=== PATIENT | female | born 1935 | race Caucasian/White ===

== ENCOUNTER 2016-10-17 11:07 | Outpatient (RCR) | payer MEDICARE, MEDICAID ==
[~2016-10-17] VITALS: Ht 162.6 cm; Wt 78.0 kg
[2016-10-17] MEDS ORDERED: NS 550ML IV ONE (11:08)
[2016-10-17] MEDS ORDERED: Succinylcholine 20mg/ml 10ml vial ONE (11:08)
[2016-10-17] MEDS ORDERED: Methohexital Sodium Syr 100mg/10ml IVP ONE (11:08)
[2016-11-05] MEDS ORDERED: NS 550ML IV ONE (11:00)
[2016-11-05] MEDS ORDERED: Methohexital Sodium Syr 100mg/10ml IVP ONE (11:00)
[2016-11-05] MEDS ORDERED: Succinylcholine 20mg/ml 10ml vial ONE (11:00)
== END 2016-11-13 | disposition home or self-care (01) ==
LOC: ECT 11:07
DX: F25.9 Schizoaffective disorder, unspecified (principal); I10 Essential (primary) hypertension; E11.9 Type 2 diabetes mellitus without complications; Z90.49 Acquired absence of other specified parts of digestive tract
CPT/HCPCS: 90870; J0330; J7040

== ENCOUNTER 2016-11-26 06:14 | Outpatient (RCR) | payer MEDICARE, MEDICAID ==
[~2016-11-26] VITALS: Ht 162.6 cm; Wt 78.0 kg
[2016-11-26] MEDS ORDERED: NS 550ML IV ONE (06:15)
[2016-11-26] MEDS ORDERED: Methohexital Sodium Syr 100mg/10ml IVP ONE (06:15)
[2016-11-26] MEDS ORDERED: Succinylcholine 20mg/ml 10ml vial ONE (06:15)
[2016-11-26] MEDS ORDERED: Atropine Sulfate 0.4mg/ml inj IVP PRN (12:30)
== END 2016-12-11 | disposition home or self-care (01) ==
LOC: ECT 06:14
DX: F25.9 Schizoaffective disorder, unspecified (principal); Z90.49 Acquired absence of other specified parts of digestive tract
CPT/HCPCS: 90870; J0330; J7040

== ENCOUNTER 2016-12-17 08:29 | Outpatient (RCR) | payer MEDICARE, MEDICAID ==
[~2016-12-17] VITALS: Ht 162.6 cm; Wt 78.0 kg
[2016-12-17] MEDS ORDERED: NS 550ML IV ONE (08:30)
[2016-12-17] MEDS ORDERED: Succinylcholine 20mg/ml 10ml vial ONE (08:30)
[2016-12-17] MEDS ORDERED: Methohexital Sodium Syr 100mg/10ml IVP ONE (08:30)
[2016-12-17] MEDS ORDERED: Atropine Sulfate 0.4mg/ml inj IVP PRN (09:50)
[2017-01-07] MEDS ORDERED: Methohexital Sodium Syr 100mg/10ml IVP ONE (08:30)
[2017-01-07] MEDS ORDERED: NS 550ML IV ONE (08:30)
[2017-01-07] MEDS ORDERED: Succinylcholine 20mg/ml 10ml vial ONE (08:30)
== END 2017-01-11 | disposition home or self-care (01) ==
LOC: ECT 08:29
DX: F25.9 Schizoaffective disorder, unspecified (principal); Z90.49 Acquired absence of other specified parts of digestive tract
CPT/HCPCS: 90870; J0330; J7040

== ENCOUNTER 2017-01-28 05:59 | Outpatient (RCR) | payer MEDICARE, MEDICAID ==
[~2017-01-28] VITALS: Ht 162.6 cm; Wt 78.0 kg
[2017-01-28] MEDS ORDERED: Methohexital Sodium Syr 100mg/10ml IVP ONE (06:00)
[2017-01-28] MEDS ORDERED: NS 550ML IV ONE (06:00)
[2017-01-28] MEDS ORDERED: Succinylcholine 20mg/ml 10ml vial ONE (06:00)
== END 2017-02-10 | disposition home or self-care (01) ==
LOC: ECT 05:59
DX: F25.9 Schizoaffective disorder, unspecified (principal)
CPT/HCPCS: 90870; J0330; J7040

== ENCOUNTER 2017-02-18 08:58 | Outpatient (RCR) | payer MEDICARE, MEDICAID ==
[~2017-02-18] VITALS: Ht 162.6 cm; Wt 78.0 kg
[2017-02-18] MEDS ORDERED: Methohexital Sodium Syr 100mg/10ml IVP ONE (08:59)
[2017-02-18] MEDS ORDERED: NS 550ML IV ONE (08:59)
[2017-02-18] MEDS ORDERED: Succinylcholine 20mg/ml 10ml vial ONE (08:59)
[2017-03-13] MEDS ORDERED: NS 550ML IV ONE (07:00)
[2017-03-13] MEDS ORDERED: Methohexital Sodium Syr 100mg/10ml IVP ONE (07:00)
[2017-03-13] MEDS ORDERED: Succinylcholine 20mg/ml 10ml vial ONE (07:00)
== END 2017-03-13 | disposition home or self-care (01) ==
LOC: ECT 08:58
DX: F25.9 Schizoaffective disorder, unspecified (principal)
CPT/HCPCS: 90870; J0330; J7040

== ENCOUNTER 2017-04-01 05:38 | Outpatient (RCR) | payer MEDICARE, MEDICAID ==
[~2017-04-01] VITALS: Ht 162.6 cm; Wt 78.0 kg
[2017-04-03] MEDS ORDERED: Methohexital Sodium Syr 100mg/10ml IVP ONE (08:00)
[2017-04-03] MEDS ORDERED: Succinylcholine 20mg/ml 10ml vial ONE (08:00)
[2017-04-03] MEDS ORDERED: NS 550ML IV ONE (08:00)
== END 2017-04-12 | disposition home or self-care (01) ==
LOC: ECT 05:38
DX: F25.9 Schizoaffective disorder, unspecified (principal)
CPT/HCPCS: 90870; J0330; J7040

== ENCOUNTER 2017-04-22 05:13 | Outpatient (RCR) | payer MEDICARE, MEDICAID ==
[~2017-04-22] VITALS: Ht 162.6 cm; Wt 78.0 kg
[2017-04-22] MEDS ORDERED: NS 500ML IV ONE (05:14)
[2017-04-22] MEDS ORDERED: Methohexital Sodium Syr 100mg/10ml IVP ONE (05:14)
[2017-04-22] MEDS ORDERED: Succinylcholine 20mg/ml 10ml vial ONE (05:14)
[2017-04-24] MEDS ORDERED: Methohexital Sodium Syr 100mg/10ml IVP ONE (07:00)
[2017-04-24] MEDS ORDERED: NS 500ML IV ONE (07:00)
[2017-04-24] MEDS ORDERED: Succinylcholine 20mg/ml 10ml vial ONE (07:00)
[2017-04-24] MEDS ORDERED: Sodium Chloride 500ML 500 ML IV ONE (10:15)
[2017-05-13] MEDS ORDERED: Sodium Chloride 500ML 500 ML IV ONE (08:26)
[2017-05-13] MEDS ORDERED: Methohexital Sodium Syr 100mg/10ml IVP ONE (10:18)
[2017-05-13] MEDS ORDERED: NS 500ML IV ONE (10:18)
[2017-05-13] MEDS ORDERED: Succinylcholine 20mg/ml 10ml vial ONE (10:18)
== END 2017-05-13 | disposition home or self-care (01) ==
LOC: ECT 05:13
DX: F25.9 Schizoaffective disorder, unspecified (principal)
CPT/HCPCS: 90870; J0330; J7040

== ENCOUNTER 2017-06-03 08:11 | Outpatient (RCR) | payer MEDICARE, MEDICAID ==
[~2017-06-03] VITALS: Ht 162.6 cm; Wt 78.0 kg
[2017-06-03] MEDS ORDERED: Succinylcholine 20mg/ml 10ml vial ONE (08:12)
[2017-06-03] MEDS ORDERED: Methohexital Sodium Syr 100mg/10ml IVP ONE (08:12)
[2017-06-03] MEDS ORDERED: NS 550ML IV ONE (08:12)
== END 2017-06-13 | disposition home or self-care (01) ==
LOC: ECT 08:11
DX: F25.9 Schizoaffective disorder, unspecified (principal)
CPT/HCPCS: 90870; J0330; J7040

== ENCOUNTER 2017-07-01 07:44 | Outpatient (RCR) | payer MEDICARE, MEDICAID ==
[~2017-07-01] VITALS: Ht 162.6 cm; Wt 78.0 kg
[2017-07-01] MEDS ORDERED: Methohexital Sodium Syr 100mg/10ml IVP ONE (07:45)
[2017-07-01] MEDS ORDERED: NS 500ML IV ONE (07:45)
[2017-07-01] MEDS ORDERED: Succinylcholine 20mg/ml 10ml vial ONE (07:45)
[2017-07-01] MEDS ORDERED: Sodium Chloride 500ML 500 ML IV ONE (09:41)
== END 2017-07-13 | disposition home or self-care (01) ==
LOC: ECT 07:44
DX: F25.9 Schizoaffective disorder, unspecified (principal)
CPT/HCPCS: 90870; J0330; J7040

== ENCOUNTER 2017-07-22 06:36 | Outpatient (RCR) | payer MEDICARE, MEDICAID ==
[~2017-07-22] VITALS: Ht 162.6 cm; Wt 78.0 kg
[2017-07-29] MEDS ORDERED: Sodium Chloride 500ML 500 ML IV ONE (08:43)
[2017-07-29] MEDS ORDERED: Methohexital Sodium Syr 100mg/10ml IVP ONE (09:00)
[2017-07-29] MEDS ORDERED: Succinylcholine 20mg/ml 10ml vial ONE (09:00)
[2017-07-29] MEDS ORDERED: NS 500ML IV ONE (09:00)
== END 2017-08-13 | disposition home or self-care (01) ==
LOC: ECT 06:36
DX: F25.9 Schizoaffective disorder, unspecified (principal)
CPT/HCPCS: 90870; J0330; J7040

== ENCOUNTER 2017-08-19 06:18 | Outpatient (RCR) | payer MEDICARE, MEDICAID ==
[~2017-08-19] VITALS: Ht 162.6 cm; Wt 78.0 kg
[2017-08-19] MEDS ORDERED: Succinylcholine 20mg/ml 10ml vial ONE (06:19)
[2017-08-19] MEDS ORDERED: Methohexital Sodium Syr 100mg/10ml IVP ONE (06:19)
[2017-08-19] MEDS ORDERED: NS 500ML IV ONE (06:19)
[2017-08-19 08:29] VITALS: BP 155/75
[2017-08-19] MEDS ORDERED: Sodium Chloride 500ML 500 ML IV ONE (08:42)
[2017-08-19 08:45] VITALS: BP 130/47
[2017-08-19 08:50] VITALS: BP 146/63
[2017-08-19 08:55] VITALS: BP 153/59
[2017-08-19 09:00] VITALS: BP 144/56
[2017-09-09] MEDS ORDERED: Succinylcholine 20mg/ml 10ml vial ONE (08:00)
[2017-09-09] MEDS ORDERED: Methohexital Sodium Syr 100mg/10ml IVP ONE (08:00)
[2017-09-09] MEDS ORDERED: NS 500ML ONE (08:00)
[2017-09-09 08:57] VITALS: BP 183/73
[2017-09-09 09:18] VITALS: BP 125/51
[2017-09-09] MEDS ORDERED: Sodium Chloride 500ML 500 ML IV ONE (09:18)
[2017-09-09] MEDS ORDERED: Atropine Sulfate 0.4mg/ml inj IVP PRN (09:18)
[2017-09-09 09:23] VITALS: BP 133/61
[2017-09-09 09:28] VITALS: BP 154/74
[2017-09-09 09:33] VITALS: BP 134/71
== END 2017-09-12 | disposition home or self-care (01) ==
LOC: ECT 06:18
DX: F25.9 Schizoaffective disorder, unspecified (principal)
CPT/HCPCS: 90870; J0330; J7040

== ENCOUNTER 2017-09-30 05:38 | Outpatient (RCR) | payer MEDICARE, MEDICAID ==
[~2017-09-30] VITALS: Ht 30.5 cm; Wt 0.5 kg
[2017-09-30] MEDS ORDERED: NS 500ML ONE (05:39)
[2017-09-30] MEDS ORDERED: Methohexital Sodium Syr 100mg/10ml IVP ONE (05:39)
[2017-09-30] MEDS ORDERED: Succinylcholine 20mg/ml 10ml vial ONE (05:39)
[2017-09-30 08:30] VITALS: BP 159/76
[2017-09-30] MEDS ORDERED: Sodium Chloride 500ML 500 ML IV ONE (08:40)
[2017-09-30 08:45] VITALS: BP 131/45
[2017-09-30 08:50] VITALS: BP 130/45
[2017-09-30 08:55] VITALS: BP 136/63
[2017-09-30 09:00] VITALS: BP 136/68
== END 2017-10-13 | disposition home or self-care (01) ==
LOC: ECT 05:38
DX: F25.9 Schizoaffective disorder, unspecified (principal)
CPT/HCPCS: 90870; J0330; J7040

== ENCOUNTER 2017-10-21 05:41 | Outpatient (RCR) | payer MEDICARE, MEDICAID ==
[~2017-10-21] VITALS: Ht 162.6 cm; Wt 78.0 kg
[2017-10-21] MEDS ORDERED: Succinylcholine 20mg/ml 10ml vial ONE (05:42)
[2017-10-21] MEDS ORDERED: NS 500ML ONE (05:42)
[2017-10-21] MEDS ORDERED: Methohexital Sodium Syr 100mg/10ml IVP ONE (05:42)
[2017-10-21 09:08] VITALS: BP 143/73
[2017-10-21 09:28] VITALS: BP 125/45
[2017-10-21] MEDS ORDERED: Sodium Chloride 500ML 500 ML IV ONE (09:28)
[2017-10-21] MEDS ORDERED: Atropine Sulfate 0.4mg/ml inj IVP PRN (09:28)
[2017-10-21 09:33] VITALS: BP 112/40
[2017-10-21 09:38] VITALS: BP 115/40
[2017-10-21 09:43] VITALS: BP 131/53
[2017-11-11] MEDS ORDERED: Methohexital Sodium Syr 100mg/10ml IVP ONE (06:00)
[2017-11-11] MEDS ORDERED: NS 500ML ONE (06:00)
[2017-11-11] MEDS ORDERED: Succinylcholine 20mg/ml 10ml vial ONE (06:00)
== END 2017-11-13 | disposition home or self-care (01) ==
LOC: ECT 05:41
DX: F25.9 Schizoaffective disorder, unspecified (principal); I10 Essential (primary) hypertension; E11.9 Type 2 diabetes mellitus without complications; Z90.49 Acquired absence of other specified parts of digestive tract
CPT/HCPCS: 90870; J0330; J7040

== ENCOUNTER 2017-12-02 06:26 | Outpatient (RCR) | payer MEDICARE, MEDICAID ==
[~2017-12-02] VITALS: Ht 30.5 cm; Wt 0.5 kg
[2017-12-02] MEDS ORDERED: NS 500ML ONE (06:27)
[2017-12-02] MEDS ORDERED: Succinylcholine 20mg/ml 10ml vial ONE (06:27)
[2017-12-02] MEDS ORDERED: Methohexital Sodium Syr 100mg/10ml IVP ONE (06:27)
[2017-12-02 08:17] VITALS: BP 148/71
[2017-12-02 08:34] VITALS: BP 136/44
[2017-12-02] MEDS ORDERED: Sodium Chloride 500ML 500 ML IV ONE (08:34)
[2017-12-02 08:39] VITALS: BP 126/40
[2017-12-02 08:44] VITALS: BP 137/53
[2017-12-02 08:49] VITALS: BP 141/45
== END 2017-12-11 | disposition home or self-care (01) ==
LOC: ECT 06:26
DX: F25.9 Schizoaffective disorder, unspecified (principal)
CPT/HCPCS: 90870; J0330; J7040

== ENCOUNTER 2017-12-23 05:17 | Outpatient (RCR) | payer MEDICARE, MEDICAID ==
[~2017-12-23] VITALS: Ht 30.5 cm; Wt 0.5 kg
[2017-12-23] MEDS ORDERED: Methohexital Sodium Syr 100mg/10ml IVP ONE (05:18)
[2017-12-23] MEDS ORDERED: NS 500ML ONE (05:18)
[2017-12-23] MEDS ORDERED: Succinylcholine 20mg/ml 10ml vial ONE (05:18)
[2017-12-23 08:37] VITALS: BP 154/72
[2017-12-23] MEDS ORDERED: Sodium Chloride 500ML 500 ML IV ONE (08:53)
[2017-12-23] MEDS ORDERED: Atropine Sulfate 0.4mg/ml inj IVP PRN (08:53)
[2017-12-23 08:55] VITALS: BP 125/41
[2017-12-23 09:00] VITALS: BP 125/41
[2017-12-23 09:05] VITALS: BP 140/57
[2017-12-23 09:10] VITALS: BP 139/54
== END 2018-01-11 | disposition home or self-care (01) ==
LOC: ECT 05:17
DX: F25.9 Schizoaffective disorder, unspecified (principal)
CPT/HCPCS: 90870; J0330; J7040

== ENCOUNTER 2018-01-13 06:30 | Outpatient (RCR) | payer MEDICARE, MEDICAID ==
[~2018-01-13] VITALS: Ht 162.6 cm; Wt 78.0 kg
[2018-01-13] MEDS ORDERED: NS 500ML ONE (06:31)
[2018-01-13] MEDS ORDERED: Succinylcholine 20mg/ml 10ml vial ONE (06:31)
[2018-01-13] MEDS ORDERED: Methohexital Sodium Syr 100mg/10ml IVP ONE (06:31)
[2018-01-13 08:50] VITALS: BP 163/73
[2018-01-13] MEDS ORDERED: Sodium Chloride 500ML 500 ML IV ONE (09:05)
[2018-01-13 09:10] VITALS: BP 119/47
[2018-01-13 09:15] VITALS: BP 188/46
[2018-01-13 09:20] VITALS: BP 131/52
[2018-01-13 09:25] VITALS: BP 136/51
[2018-02-03] MEDS ORDERED: NS 500ML ONE (08:00)
[2018-02-03] MEDS ORDERED: Succinylcholine 20mg/ml 10ml vial ONE (08:00)
[2018-02-03] MEDS ORDERED: Methohexital Sodium Syr 100mg/10ml IVP ONE (08:00)
[2018-02-03 08:05] VITALS: BP 153/67
[2018-02-03] MEDS ORDERED: Sodium Chloride 500ML 500 ML IV ONE (08:20)
[2018-02-03 08:25] VITALS: BP 133/46
[2018-02-03 08:30] VITALS: BP 132/43
[2018-02-03 08:35] VITALS: BP 129/70
[2018-02-03 08:40] VITALS: BP 138/54
== END 2018-02-10 | disposition home or self-care (01) ==
LOC: ECT 06:30
DX: F25.9 Schizoaffective disorder, unspecified (principal)
CPT/HCPCS: 90870; J0330; J7040

== ENCOUNTER 2018-02-24 06:26 | Outpatient (RCR) | payer MEDICARE, MEDICAID ==
[2018-02-24] VITALS (7 sets, daily range): BP systolic 114–126; BP diastolic 41–60
[~2018-02-24] VITALS: Ht 162.6 cm; Wt 78.0 kg
[2018-02-24] MEDS ORDERED: Methohexital Sodium Syr 100mg/10ml IVP ONE (06:27)
[2018-02-24] MEDS ORDERED: NS 500ML ONE (06:27)
[2018-02-24] MEDS ORDERED: Succinylcholine 20mg/ml 10ml vial ONE (06:27)
[2018-02-24] MEDS ORDERED: Sodium Chloride 500ML 500 ML IV ONE (09:28)
[2018-02-24] MEDS ORDERED: Atropine Sulfate 0.4mg/ml inj IVP PRN (09:28)
== END 2018-03-13 | disposition home or self-care (01) ==
LOC: ECT 06:26
DX: F25.9 Schizoaffective disorder, unspecified (principal)
CPT/HCPCS: 90870; J0330; J7040

== ENCOUNTER 2018-03-17 08:25 | Outpatient (RCR) | payer MEDICARE, MEDICAID ==
[~2018-03-17] VITALS: Ht 162.6 cm; Wt 78.0 kg
[2018-03-17 08:15] VITALS: BP 177/80
[2018-03-17] MEDS ORDERED: NS 500ML ONE (08:26)
[2018-03-17] MEDS ORDERED: Methohexital Sodium Syr 100mg/10ml IVP ONE (08:26)
[2018-03-17] MEDS ORDERED: Succinylcholine 20mg/ml 10ml vial ONE (08:26)
[2018-03-17] MEDS ORDERED: Sodium Chloride 500ML 500 ML IV ONE (08:26)
[2018-03-17 08:30] VITALS: BP 155/54
[2018-03-17 08:35] VITALS: BP 137/51
[2018-03-17 08:40] VITALS: BP 141/55
[2018-03-17 08:45] VITALS: BP 144/58
[2018-04-07] MEDS ORDERED: Succinylcholine 20mg/ml 10ml vial ONE (07:00)
[2018-04-07] MEDS ORDERED: Methohexital Sodium Syr 100mg/10ml IVP ONE (07:00)
[2018-04-07] MEDS ORDERED: NS 500ML ONE (07:00)
[2018-04-07 08:16] VITALS: BP 137/72
[2018-04-07] MEDS ORDERED: Sodium Chloride 500ML 500 ML IV ONE (08:31)
[2018-04-07 08:35] VITALS: BP 136/43
[2018-04-07 08:40] VITALS: BP 126/41
[2018-04-07 08:45] VITALS: BP 120/34
[2018-04-07 08:50] VITALS: BP 127/45
[2018-04-07 08:55] VITALS: BP 124/48
== END 2018-04-12 | disposition home or self-care (01) ==
LOC: ECT 08:25
DX: F25.9 Schizoaffective disorder, unspecified (principal)
CPT/HCPCS: 90870; J0330; J7040

== ENCOUNTER 2018-04-28 06:05 | Outpatient (RCR) | payer MEDICARE, MEDICAID ==
[~2018-04-28] VITALS: Ht 33 cm; Wt 0.5 kg
[2018-04-28] MEDS ORDERED: Methohexital Sodium Syr 100mg/10ml IVP ONE (06:06)
[2018-04-28] MEDS ORDERED: NS 500ML ONE (06:06)
[2018-04-28] MEDS ORDERED: Succinylcholine 20mg/ml 10ml vial ONE (06:06)
[2018-04-28 07:58] VITALS: BP 155/72
[2018-04-28] MEDS ORDERED: Sodium Chloride 500ML 500 ML IV ONE (08:10)
[2018-04-28 08:15] VITALS: BP 142/46
[2018-04-28 08:20] VITALS: BP 129/53
[2018-04-28 08:25] VITALS: BP 111/43
[2018-04-28 08:30] VITALS: BP 146/54
== END 2018-05-13 | disposition home or self-care (01) ==
LOC: ECT 06:05
DX: F25.9 Schizoaffective disorder, unspecified (principal)
CPT/HCPCS: 90870; J0330; J7040

== ENCOUNTER 2018-05-19 06:26 | Outpatient (RCR) | payer MEDICARE, MEDICAID ==
[~2018-05-19] VITALS: Ht 162.6 cm; Wt 78.0 kg
[2018-05-19] MEDS ORDERED: Succinylcholine 20mg/ml 10ml vial ONE (06:27)
[2018-05-19] MEDS ORDERED: NS 500ML ONE (06:27)
[2018-05-19] MEDS ORDERED: Methohexital Sodium Syr 100mg/10ml IVP ONE (06:27)
[2018-05-19 08:32] VITALS: BP 166/70
[2018-05-19] MEDS ORDERED: Sodium Chloride 500ML 500 ML IV ONE (08:53)
[2018-05-19 08:55] VITALS: BP 128/49
[2018-05-19 09:00] VITALS: BP 123/51
[2018-05-19 09:05] VITALS: BP 141/60
[2018-05-19 09:10] VITALS: BP 142/56
[2018-06-09] MEDS ORDERED: NS 500ML ONE (07:00)
[2018-06-09] MEDS ORDERED: Methohexital Sodium Syr 100mg/10ml IVP ONE (07:00)
[2018-06-09] MEDS ORDERED: Succinylcholine 20mg/ml 10ml vial ONE (07:00)
[2018-06-09 08:44] VITALS: BP 146/62
[2018-06-09] MEDS ORDERED: Sodium Chloride 500ML 500 ML IV ONE (08:56)
[2018-06-09 09:00] VITALS: BP 149/54
[2018-06-09 09:05] VITALS: BP 133/51
[2018-06-09 09:10] VITALS: BP 134/63
[2018-06-09 09:15] VITALS: BP 132/45
== END 2018-06-13 | disposition home or self-care (01) ==
LOC: ECT 06:26
DX: F25.9 Schizoaffective disorder, unspecified (principal)
CPT/HCPCS: 90870; J0330; J7040

== ENCOUNTER 2018-06-30 08:16 | Outpatient (RCR) | payer MEDICARE, MEDICAID ==
[~2018-06-30] VITALS: Ht 30.5 cm; Wt 0.5 kg
[2018-06-30] MEDS ORDERED: Methohexital Sodium Syr 100mg/10ml IVP ONE (08:17)
[2018-06-30] MEDS ORDERED: Succinylcholine 20mg/ml 10ml vial ONE (08:17)
[2018-06-30] MEDS ORDERED: NS 500ML ONE (08:17)
[2018-06-30 08:45] VITALS: BP 173/77
[2018-06-30] MEDS ORDERED: Sodium Chloride 500ML 500 ML IV ONE (09:00)
[2018-06-30 09:05] VITALS: BP 141/70
[2018-06-30 09:10] VITALS: BP 147/48
[2018-06-30 09:15] VITALS: BP 155/48
[2018-06-30 09:20] VITALS: BP 137/69
== END 2018-07-13 | disposition home or self-care (01) ==
LOC: ECT 08:16
DX: F25.9 Schizoaffective disorder, unspecified (principal)
CPT/HCPCS: 90870; J0330; J7040

== ENCOUNTER 2018-07-21 05:41 | Outpatient (RCR) | payer MEDICARE, MEDICAID ==
[~2018-07-21] VITALS: Ht 30.5 cm; Wt 0.5 kg
[2018-07-21] MEDS ORDERED: Methohexital Sodium Syr 100mg/10ml IVP ONE (05:42)
[2018-07-21] MEDS ORDERED: NS 500ML ONE (05:42)
[2018-07-21] MEDS ORDERED: Succinylcholine 20mg/ml 10ml vial ONE (05:42)
[2018-07-21 08:13] VITALS: BP 151/73
[2018-07-21] MEDS ORDERED: Sodium Chloride 500ML 500 ML IV ONE (08:36)
[2018-07-21 08:40] VITALS: BP 131/46
[2018-07-21 08:45] VITALS: BP 121/44
[2018-07-21 08:50] VITALS: BP 119/46
[2018-07-21 08:55] VITALS: BP 122/47
== END 2018-08-13 | disposition home or self-care (01) ==
LOC: ECT 05:41
DX: F25.9 Schizoaffective disorder, unspecified (principal)
CPT/HCPCS: 90870; J0330; J7040

== ENCOUNTER 2018-08-18 05:06 | Outpatient (RCR) | payer MEDICARE, MEDICAID ==
[~2018-08-18] VITALS: Ht 162.6 cm; Wt 78.0 kg
[2018-08-22] MEDS ORDERED: Succinylcholine 20mg/ml 10ml vial ONE (08:00)
[2018-08-22] MEDS ORDERED: NS 500ML ONE (08:00)
[2018-08-22] MEDS ORDERED: Methohexital Sodium Syr 100mg/10ml IVP ONE (08:00)
[2018-08-22 08:54] VITALS: BP 137/72
[2018-08-22] MEDS ORDERED: Sodium Chloride 500ML 500 ML IV ONE (09:04)
[2018-08-22 09:05] VITALS: BP 132/45
[2018-08-22 09:10] VITALS: BP 129/47
[2018-08-22 09:15] VITALS: BP 123/49
[2018-08-22 09:20] VITALS: BP 130/60
== END 2018-09-12 | disposition home or self-care (01) ==
LOC: ECT 05:06
DX: F25.9 Schizoaffective disorder, unspecified (principal)
CPT/HCPCS: 90870; J0330; J7040

== ENCOUNTER 2018-09-15 05:04 | Outpatient (RCR) | payer MEDICARE, MEDICAID ==
[~2018-09-15] VITALS: Ht 162.6 cm; Wt 35.4 kg
[2018-09-15] MEDS ORDERED: Methohexital Sodium Syr 100mg/10ml IVP ONE (05:05)
[2018-09-15] MEDS ORDERED: NS 500ML ONE (05:05)
[2018-09-15] MEDS ORDERED: Succinylcholine 20mg/ml 10ml vial ONE (05:05)
[2018-09-15 08:03] VITALS: BP 163/66
[2018-09-15] MEDS ORDERED: Atropine Sulfate 0.4mg/ml inj IVP PRN (08:23)
[2018-09-15] MEDS ORDERED: Sodium Chloride 500ML 500 ML IV ONE (08:23)
[2018-09-15 08:25] VITALS: BP 145/44
[2018-09-15 08:30] VITALS: BP 129/46
[2018-09-15 08:35] VITALS: BP 123/45
[2018-09-15 08:40] VITALS: BP 128/45
[2018-10-08] MEDS ORDERED: NS 500ML ONE (06:00)
[2018-10-08] MEDS ORDERED: Succinylcholine 20mg/ml 10ml vial ONE (06:00)
[2018-10-08] MEDS ORDERED: Methohexital Sodium Syr 100mg/10ml IVP ONE (06:00)
[2018-10-08 08:26] VITALS: BP 156/75
[2018-10-08] MEDS ORDERED: Sodium Chloride 500ML 500 ML IV ONE (08:38)
[2018-10-08 08:40] VITALS: BP 121/56
[2018-10-08 08:45] VITALS: BP 156/54
[2018-10-08 08:50] VITALS: BP 157/77
[2018-10-08 08:55] VITALS: BP 151/77
== END 2018-10-13 | disposition home or self-care (01) ==
LOC: ECT 05:04
DX: F25.9 Schizoaffective disorder, unspecified (principal)
CPT/HCPCS: 90870; J0330; J7040

== ENCOUNTER 2018-10-29 06:28 | Outpatient (RCR) | payer MEDICARE, MEDICAID ==
[~2018-10-29] VITALS: Ht 162.6 cm; Wt 78.0 kg
[2018-10-29] MEDS ORDERED: Methohexital Sodium Syr 100mg/10ml IVP ONE (06:29)
[2018-10-29] MEDS ORDERED: NS 500ML ONE (06:29)
[2018-10-29] MEDS ORDERED: Succinylcholine 20mg/ml 10ml vial ONE (06:29)
[2018-10-29 08:38] VITALS: BP 153/72
[2018-10-29 08:55] VITALS: BP 139/49
[2018-10-29 09:00] VITALS: BP 133/55
[2018-10-29 09:05] VITALS: BP 101/51
[2018-10-29 09:10] VITALS: BP 124/67
== END 2018-11-13 | disposition home or self-care (01) ==
LOC: ECT 06:28
DX: F25.9 Schizoaffective disorder, unspecified (principal)
CPT/HCPCS: 90870; J0330; J7040

== ENCOUNTER 2018-11-19 04:42 | Outpatient (RCR) | payer MEDICARE, MEDICAID ==
[~2018-11-19] VITALS: Ht 162.6 cm; Wt 78.0 kg
[2018-11-24] MEDS ORDERED: Succinylcholine 20mg/ml 10ml vial ONE (07:00)
[2018-11-24] MEDS ORDERED: NS 500ML ONE (07:00)
[2018-11-24] MEDS ORDERED: Esmolol 100mg/10ml Inj ONE (07:00)
[2018-11-24 09:13] VITALS: BP 160/82
[2018-11-24 09:30] VITALS: BP 139/49
[2018-11-24 09:35] VITALS: BP 132/50
[2018-11-24 09:40] VITALS: BP 123/46
[2018-11-24 09:45] VITALS: BP 121/46
== END 2018-12-11 | disposition home or self-care (01) ==
LOC: ECT 04:42
DX: F25.9 Schizoaffective disorder, unspecified (principal)
CPT/HCPCS: 90870; J0330; J7040

== ENCOUNTER 2018-12-15 06:46 | Outpatient (RCR) | payer MEDICARE, MEDICAID ==
[~2018-12-15] VITALS: Ht 30.5 cm; Wt 0.5 kg
[2018-12-15] MEDS ORDERED: NS 500ML ONE (06:47)
[2018-12-15] MEDS ORDERED: Succinylcholine 20mg/ml 10ml vial ONE (06:47)
[2018-12-15] MEDS ORDERED: Methohexital Sodium Syr 100mg/10ml IVP ONE (06:47)
[2018-12-15 08:26] VITALS: BP 154/66
[2018-12-15 08:40] VITALS: BP 142/51
[2018-12-15 08:45] VITALS: BP 123/46
[2018-12-15 08:50] VITALS: BP 138/68
[2018-12-15 08:55] VITALS: BP 142/50
[2019-01-05] MEDS ORDERED: Succinylcholine 20mg/ml 10ml vial ONE (06:00)
[2019-01-05] MEDS ORDERED: Methohexital Sodium Syr 100mg/10ml IVP ONE (06:00)
[2019-01-05] MEDS ORDERED: NS 500ML ONE (06:00)
[2019-01-05 09:06] VITALS: BP 165/74
[2019-01-05] MEDS ORDERED: Atropine Sulfate 0.4mg/ml inj IVP PRN (09:28)
[2019-01-05 09:30] VITALS: BP 132/48
[2019-01-05 09:35] VITALS: BP 138/56
[2019-01-05 09:40] VITALS: BP 144/56
[2019-01-05 09:45] VITALS: BP 135/59
== END 2019-01-11 | disposition home or self-care (01) ==
LOC: ECT 06:46
DX: F25.9 Schizoaffective disorder, unspecified (principal)
CPT/HCPCS: 90870; J0330; J7040

== ENCOUNTER 2019-01-26 09:23 | Outpatient (RCR) | payer MEDICARE, MEDICAID ==
[~2019-01-26] VITALS: Ht 162.6 cm; Wt 78.0 kg
[2019-01-26] MEDS ORDERED: NS 500ML ONE (09:24)
[2019-01-26] MEDS ORDERED: Methohexital Sodium Syr 100mg/10ml IVP ONE (09:24)
[2019-01-26] MEDS ORDERED: Succinylcholine 20mg/ml 10ml vial ONE (09:24)
[2019-01-26 09:35] VITALS: BP_SYST 124; BP_SYST 148; BP_DIAS 42; BP_DIAS 61
[2019-01-26 09:40] VITALS: BP 134/69
[2019-01-26 09:45] VITALS: BP 130/57
[2019-01-26 09:50] VITALS: BP 135/36
== END 2019-02-10 | disposition home or self-care (01) ==
LOC: ECT 09:23
DX: F25.9 Schizoaffective disorder, unspecified (principal)
CPT/HCPCS: 90870; J0330; J7040

== ENCOUNTER 2019-02-16 07:54 | Outpatient (RCR) | payer MEDICARE, MEDICAID ==
[~2019-02-16] VITALS: Ht 30.5 cm; Wt 0.5 kg
[2019-02-16] MEDS ORDERED: Succinylcholine 20mg/ml 10ml vial ONE (07:55)
[2019-02-16] MEDS ORDERED: Methohexital Sodium Syr 100mg/10ml IVP ONE (07:55)
[2019-02-16] MEDS ORDERED: NS 500ML ONE (07:55)
[2019-02-16 08:39] VITALS: BP 154/75
[2019-02-16 08:55] VITALS: BP 117/40
[2019-02-16 09:00] VITALS: BP 113/46
[2019-02-16 09:05] VITALS: BP 105/37
[2019-02-16 09:10] VITALS: BP 130/52
[2019-03-11 08:57] VITALS: BP 150/75
[2019-03-11] MEDS ORDERED: Succinylcholine 20mg/ml 10ml vial ONE (09:00)
[2019-03-11] MEDS ORDERED: NS 500ML ONE (09:00)
[2019-03-11] MEDS ORDERED: Methohexital Sodium Syr 100mg/10ml IVP ONE (09:00)
[2019-03-11 09:10] VITALS: BP 124/46
[2019-03-11 09:15] VITALS: BP 118/47
[2019-03-11 09:20] VITALS: BP 132/62
[2019-03-11 09:25] VITALS: BP 146/55
== END 2019-03-13 | disposition home or self-care (01) ==
LOC: ECT 07:54
DX: F25.9 Schizoaffective disorder, unspecified (principal)
CPT/HCPCS: 90870; J0330; J7040

== ENCOUNTER 2019-04-01 07:31 | Outpatient (RCR) | payer MEDICARE, MEDICAID ==
[~2019-04-01] VITALS: Ht 162.6 cm; Wt 70.3 kg
[2019-04-06 08:39] VITALS: BP 176/85
[2019-04-06 08:50] VITALS: BP 131/50
[2019-04-06 08:55] VITALS: BP 129/41
[2019-04-06 09:00] VITALS: BP 131/91
[2019-04-06] MEDS ORDERED: Methohexital Sodium Syr 100mg/10ml IVP ONE (09:00)
[2019-04-06] MEDS ORDERED: Succinylcholine 20mg/ml 10ml vial ONE (09:00)
[2019-04-06] MEDS ORDERED: NS 500ML ONE (09:00)
[2019-04-06 09:05] VITALS: BP 135/46
== END 2019-04-12 | disposition home or self-care (01) ==
LOC: ECT 07:31
DX: F25.9 Schizoaffective disorder, unspecified (principal)
CPT/HCPCS: 90870; J0330; J7040

== ENCOUNTER 2019-04-27 05:45 | Outpatient (RCR) | payer MEDICARE, MEDICAID ==
[~2019-04-27] VITALS: Ht 162.6 cm; Wt 70.3 kg
[2019-04-27] MEDS ORDERED: Methohexital Sodium Syr 100mg/10ml IVP ONE (05:46)
[2019-04-27] MEDS ORDERED: Succinylcholine 20mg/ml 10ml vial ONE (05:46)
[2019-04-27] MEDS ORDERED: NS 500ML ONE (05:46)
[2019-04-27 08:10] VITALS: BP 159/76
[2019-04-27 08:25] VITALS: BP 140/51
[2019-04-27 08:30] VITALS: BP 120/47
[2019-04-27 08:35] VITALS: BP 122/43
[2019-04-27 08:40] VITALS: BP 124/44
== END 2019-05-13 | disposition home or self-care (01) ==
LOC: ECT 05:45
DX: F25.9 Schizoaffective disorder, unspecified (principal)
CPT/HCPCS: 90870; J0330; J7040

== ENCOUNTER 2019-05-18 06:31 | Outpatient (RCR) | payer MEDICARE, MEDICAID ==
[~2019-05-18] VITALS: Ht 162.6 cm; Wt 70.3 kg
[~2019-05-18 06:31] MED LIST: Methohexital Sodium Syr 100mg/10ml IVP ONE; NS 500ML ONE; Succinylcholine 20mg/ml 10ml vial ONE
[2019-05-18 08:22] VITALS: BP 170/77
[2019-05-18 08:35] VITALS: BP 128/49
[2019-05-18 08:40] VITALS: BP 125/44
[2019-05-18 08:45] VITALS: BP 120/44
[2019-05-18 08:50] VITALS: BP 120/44
[2019-06-08] MEDS ORDERED: NS 500ML ONE (07:00)
[2019-06-08] MEDS ORDERED: Succinylcholine 20mg/ml 10ml vial ONE (07:00)
[2019-06-08] MEDS ORDERED: Methohexital Sodium Syr 100mg/10ml IVP ONE (07:00)
[2019-06-08 08:26] VITALS: BP 157/75
[2019-06-08] MEDS ORDERED: Atropine Sulfate 0.4mg/ml inj IVP PRN (08:49)
[2019-06-08 08:50] VITALS: BP 146/43
[2019-06-08 08:55] VITALS: BP 120/42
[2019-06-08 09:00] VITALS: BP 127/54
[2019-06-08 09:05] VITALS: BP 137/59
== END 2019-06-13 | disposition home or self-care (01) ==
LOC: ECT 06:31
DX: F25.9 Schizoaffective disorder, unspecified (principal)
CPT/HCPCS: 90870; J0330; J7040

== ENCOUNTER 2019-06-29 06:02 | Outpatient (RCR) | payer MEDICARE, MEDICAID ==
[~2019-06-29] VITALS: Ht 162.6 cm; Wt 70.3 kg
[2019-06-29 08:37] VITALS: BP 169/83
[2019-06-29 08:55] VITALS: BP 129/40
[2019-06-29 09:00] VITALS: BP 124/45
[2019-06-29 09:05] VITALS: BP 124/45
[2019-06-29 09:10] VITALS: BP 143/67
== END 2019-07-13 | disposition home or self-care (01) ==
LOC: ECT 06:02
DX: F25.9 Schizoaffective disorder, unspecified (principal)
CPT/HCPCS: 90870; J0330; J7040

== ENCOUNTER 2019-07-20 08:51 | Outpatient (RCR) | payer MEDICARE, MEDICAID ==
[~2019-07-20] VITALS: Ht 30.5 cm; Wt 0.5 kg
[2019-07-20 08:46] VITALS: BP 172/76
[2019-07-20] MEDS ORDERED: NS 500ML ONE ×2 (08:52)
[2019-07-20] MEDS ORDERED: Methohexital Sodium Syr 100mg/10ml IVP ONE ×2 (08:52)
[2019-07-20] MEDS ORDERED: Succinylcholine 20mg/ml 10ml vial ONE ×2 (08:52)
[2019-07-20 09:00] VITALS: BP 133/48
[2019-07-20 09:05] VITALS: BP 135/50
[2019-07-20 09:10] VITALS: BP 126/51
[2019-07-20 09:15] VITALS: BP 126/35
[2019-08-07 08:37] VITALS: BP 168/75
[2019-08-07 08:50] VITALS: BP 128/45
[2019-08-07 08:55] VITALS: BP 128/41
[2019-08-07 09:00] VITALS: BP 125/80
[2019-08-07 09:05] VITALS: BP 134/55
== END 2019-08-13 | disposition home or self-care (01) ==
LOC: ECT 08:51
DX: F25.9 Schizoaffective disorder, unspecified (principal)
CPT/HCPCS: 90870; J0330; J7040

== ENCOUNTER 2019-08-31 06:59 | Outpatient (RCR) | payer MEDICARE, MEDICAID ==
[~2019-08-31] VITALS: Ht 162.6 cm; Wt 70.3 kg
[2019-08-31 08:14] VITALS: BP 132/63
[2019-08-31 08:26] VITALS: BP 118/40
[2019-08-31 08:31] VITALS: BP 105/37
[2019-08-31 08:36] VITALS: BP 90/34
[2019-08-31 08:41] VITALS: BP 95/33
== END 2019-09-12 | disposition home or self-care (01) ==
LOC: ECT 06:59
DX: F25.9 Schizoaffective disorder, unspecified (principal)
CPT/HCPCS: 90870; J0330; J7040

== ENCOUNTER 2019-09-28 05:03 | Outpatient (RCR) | payer MEDICARE, MEDICAID ==
[~2019-09-28] VITALS: Ht 162.6 cm; Wt 70.3 kg
[2019-09-28] MEDS ORDERED: NS 500ML ONE (05:04)
[2019-09-28] MEDS ORDERED: Methohexital Sodium Syr 100mg/10ml IVP ONE (05:04)
[2019-09-28] MEDS ORDERED: Succinylcholine 20mg/ml 10ml vial ONE (05:04)
[2019-09-28 08:59] VITALS: BP 152/75
[2019-09-28 09:10] VITALS: BP 125/46
[2019-09-28 09:15] VITALS: BP 122/45
[2019-09-28 09:20] VITALS: BP 123/61
[2019-09-28 09:25] VITALS: BP 150/56
== END 2019-10-13 | disposition home or self-care (01) ==
LOC: ECT 05:03
DX: F25.9 Schizoaffective disorder, unspecified (principal)
CPT/HCPCS: 90870

== ENCOUNTER 2019-11-16 07:28 | Outpatient (RCR) | payer MEDICARE, MEDICAID ==
[~2019-11-16] VITALS: Ht 162.6 cm; Wt 70.3 kg
[2019-11-16] MEDS ORDERED: NS 500ML ONE (07:29)
[2019-11-16] MEDS ORDERED: Methohexital Sodium Syr 100mg/10ml IVP ONE (07:29)
[2019-11-16] MEDS ORDERED: Succinylcholine 20mg/ml 10ml vial ONE (07:29)
[2019-11-16 09:01] VITALS: BP 165/77
[2019-11-16 09:16] VITALS: BP 125/40
[2019-11-16 09:21] VITALS: BP 119/45
[2019-11-16 09:26] VITALS: BP 127/44
[2019-11-16 09:31] VITALS: BP 146/59
[2019-11-18] MEDS ORDERED: NS 500ML ONE (07:00)
[2019-11-18] MEDS ORDERED: Methohexital Sodium Syr 100mg/10ml IVP ONE (07:00)
[2019-11-18] MEDS ORDERED: Succinylcholine 20mg/ml 10ml vial ONE (07:00)
[2019-11-18 08:53] VITALS: BP 158/74
[2019-11-18 09:05] VITALS: BP 117/37
[2019-11-18 09:10] VITALS: BP 93/29
[2019-11-18 09:15] VITALS: BP 116/42
[2019-11-18 09:20] VITALS: BP 116/43
[2019-11-20] MEDS ORDERED: Methohexital Sodium Syr 100mg/10ml IVP ONE (06:00)
[2019-11-20] MEDS ORDERED: Succinylcholine 20mg/ml 10ml vial ONE (06:00)
[2019-11-20] MEDS ORDERED: NS 500ML ONE (06:00)
[2019-11-20 08:37] VITALS: BP 144/69
[2019-11-20 08:50] VITALS: BP 120/34
[2019-11-20 08:55] VITALS: BP 165/111
[2019-11-20 09:00] VITALS: BP 114/42
[2019-11-20 09:05] VITALS: BP 122/46
[2019-11-23] MEDS ORDERED: NS 500ML ONE (08:00)
[2019-11-23] MEDS ORDERED: Succinylcholine 20mg/ml 10ml vial ONE (08:00)
[2019-11-23] MEDS ORDERED: Methohexital Sodium Syr 100mg/10ml IVP ONE (08:00)
[2019-11-23 08:53] VITALS: BP 156/70
[2019-11-23 09:03] VITALS: BP 134/43
[2019-11-23 09:08] VITALS: BP 123/36
[2019-11-23 09:13] VITALS: BP 116/35
[2019-11-23 09:18] VITALS: BP 119/47
[2019-11-25] MEDS ORDERED: Succinylcholine 20mg/ml 10ml vial ONE (06:00)
[2019-11-25] MEDS ORDERED: NS 500ML ONE (06:00)
[2019-11-25] MEDS ORDERED: Methohexital Sodium Syr 100mg/10ml IVP ONE (06:00)
[2019-11-25 08:40] VITALS: BP 135/62
[2019-11-25 08:51] VITALS: BP 134/49
[2019-11-25 08:56] VITALS: BP 104/30
[2019-11-25 09:01] VITALS: BP 94/31
[2019-11-25 09:06] VITALS: BP 123/46
[2019-12-02] MEDS ORDERED: Methohexital Sodium Syr 100mg/10ml IVP ONE (06:00)
[2019-12-02] MEDS ORDERED: Succinylcholine 20mg/ml 10ml vial ONE (06:00)
[2019-12-02] MEDS ORDERED: NS 500ML ONE (06:00)
[2019-12-02 08:59] VITALS: BP 143/63
[2019-12-02 09:13] VITALS: BP 123/39
[2019-12-02 09:18] VITALS: BP 110/36
[2019-12-02 09:23] VITALS: BP 96/35
[2019-12-02 09:28] VITALS: BP 90/48
== END 2019-12-12 | disposition home or self-care (01) ==
LOC: ECT 07:28
DX: F25.9 Schizoaffective disorder, unspecified (principal)
CPT/HCPCS: 90870; J0330; J7040

== ENCOUNTER 2019-12-16 05:27 | Outpatient (RCR) | payer MEDICAID, MEDICARE ==
[~2019-12-16] VITALS: Ht 162.6 cm; Wt 70.3 kg
[2019-12-16] MEDS ORDERED: Succinylcholine 20mg/ml 10ml vial ONE (05:28)
[2019-12-16] MEDS ORDERED: Methohexital Sodium Syr 100mg/10ml IVP ONE (05:28)
[2019-12-16] MEDS ORDERED: NS 500ML ONE (05:28)
[2019-12-16 08:56] VITALS: BP 153/66
[2019-12-16 09:15] VITALS: BP 131/44
[2019-12-16 09:21] VITALS: BP 114/35
[2019-12-16 09:25] VITALS: BP 107/32
[2019-12-16 09:30] VITALS: BP 107/47
[2020-01-06 08:55] VITALS: BP 152/71
[2020-01-06] MEDS ORDERED: NS 500ML ONE (09:00)
[2020-01-06] MEDS ORDERED: Succinylcholine 20mg/ml 10ml vial ONE ×2 (09:00)
[2020-01-06] MEDS ORDERED: Methohexital Sodium Syr 100mg/10ml IVP ONE ×2 (09:00)
[2020-01-06] MEDS ORDERED: Glycopyrrolate 0.2mg/ml 1ml Vial ONE (09:00)
[2020-01-06] MEDS ORDERED: Midazolam 2mg/2ml Inj ONE (09:00)
[2020-01-06 09:15] VITALS: BP 116/36
[2020-01-06 09:20] VITALS: BP 120/54
[2020-01-06 09:25] VITALS: BP 121/49
[2020-01-06 09:30] VITALS: BP 138/52
== END 2020-01-12 | disposition home or self-care (01) ==
LOC: ECT 05:27
DX: F25.9 Schizoaffective disorder, unspecified (principal)
CPT/HCPCS: 90870; J0330; J2250; J7040

== ENCOUNTER 2020-01-27 07:54 | Outpatient (RCR) | payer MEDICAID, MEDICARE ==
[~2020-01-27] VITALS: Ht 30.5 cm; Wt 0.5 kg
[2020-01-27] MEDS ORDERED: Succinylcholine 20mg/ml 10ml vial ONE (07:55)
[2020-01-27] MEDS ORDERED: Methohexital Sodium Syr 100mg/10ml IVP ONE (07:55)
[2020-01-27] MEDS ORDERED: NS 500ML ONE (07:55)
[2020-01-27 09:12] VITALS: BP 154/68
[2020-01-27 09:30] VITALS: BP 122/60
[2020-01-27 09:35] VITALS: BP 142/56
[2020-01-27 09:40] VITALS: BP 135/55
[2020-01-27 09:45] VITALS: BP 136/54
== END 2020-02-11 | disposition home or self-care (01) ==
LOC: ECT 07:54
DX: F25.9 Schizoaffective disorder, unspecified (principal)
CPT/HCPCS: 90870; J0330; J7040

== ENCOUNTER 2020-02-17 05:18 | Outpatient (RCR) | payer MEDICARE ==
[~2020-02-17] VITALS: Ht 162.6 cm; Wt 70.3 kg
[2020-02-17] MEDS ORDERED: Methohexital Sodium Syr 100mg/10ml IVP ONE (05:19)
[2020-02-17] MEDS ORDERED: Succinylcholine 20mg/ml 10ml vial ONE (05:19)
[2020-02-17] MEDS ORDERED: NS 500ML ONE (05:19)
[2020-02-17 09:11] VITALS: BP 177/81
[2020-02-17 09:30] VITALS: BP 124/43
[2020-02-17 09:35] VITALS: BP 129/49
[2020-02-17 09:40] VITALS: BP 127/50
[2020-02-17 09:45] VITALS: BP 139/51
[2020-03-09 09:11] VITALS: BP 160/59
[2020-03-09 09:29] VITALS: BP 174/46
[2020-03-09] MEDS ORDERED: Atropine Sulfate 0.4mg/ml inj IVP PRN (09:29)
[2020-03-09] MEDS ORDERED: Lidocaine 2% 100mg/5ml Carp IV PRN (09:29)
[2020-03-09 09:34] VITALS: BP 194/52
[2020-03-09 09:39] VITALS: BP 144/72
[2020-03-09 09:44] VITALS: BP 151/53
== END 2020-03-13 | disposition home or self-care (01) ==
LOC: ECT 05:18
DX: F25.9 Schizoaffective disorder, unspecified (principal)
CPT/HCPCS: 90870; J0330; J7040

== ENCOUNTER 2020-03-30 07:07 | Outpatient (RCR) | payer MEDICARE ==
[~2020-03-30] VITALS: Ht 30.5 cm; Wt 0.5 kg
[2020-04-04] MEDS ORDERED: Methohexital Sodium Syr 100mg/10ml IVP ONE (09:00)
[2020-04-04] MEDS ORDERED: Labetalol 5mg/ml 20ml vial IV ONE (09:00)
[2020-04-04] MEDS ORDERED: NS 500ML ONE (09:00)
[2020-04-04] MEDS ORDERED: Succinylcholine 20mg/ml 10ml vial ONE (09:00)
[2020-04-04 11:51] VITALS: BP 164/73
[2020-04-04] MEDS ORDERED: Lidocaine 2% 100mg/5ml Carp IV PRN (12:18)
[2020-04-04] MEDS ORDERED: Atropine Sulfate 0.4mg/ml inj IVP PRN (12:18)
[2020-04-04 12:20] VITALS: BP 136/46
[2020-04-04 12:25] VITALS: BP 134/56
[2020-04-04 12:30] VITALS: BP 145/83
[2020-04-04 12:35] VITALS: BP 148/69
== END 2020-04-12 | disposition home or self-care (01) ==
LOC: ECT 07:07
DX: F25.9 Schizoaffective disorder, unspecified (principal)
CPT/HCPCS: 90870; J0330; J7040

== ENCOUNTER 2020-04-29 07:19 | Outpatient (RCR) | payer MEDICARE ==
[~2020-04-29] VITALS: Ht 30.5 cm; Wt 0.5 kg
[2020-04-29 08:29] VITALS: BP 163/80
[2020-04-29 08:40] VITALS: BP 142/51
[2020-04-29 08:45] VITALS: BP 134/50
[2020-04-29 08:50] VITALS: BP 141/56
[2020-04-29 08:55] VITALS: BP 157/55
[2020-04-29] MEDS ORDERED: Succinylcholine 20mg/ml 10ml vial ONE (09:00)
[2020-04-29] MEDS ORDERED: Labetalol 5mg/ml 20ml vial IV ONE (09:00)
[2020-04-29] MEDS ORDERED: NS 500ML ONE (09:00)
== END 2020-05-13 | disposition home or self-care (01) ==
LOC: ECT 07:19
DX: F25.9 Schizoaffective disorder, unspecified (principal)
CPT/HCPCS: 90870; J0330; J7040

== ENCOUNTER 2020-05-23 06:33 | Outpatient (RCR) | payer MEDICARE ==
[2020-05-23] VITALS (7 sets, daily range): BP systolic 124–164; BP diastolic 39–71
[~2020-05-23] VITALS: Ht 30.5 cm; Wt 0.5 kg
[2020-05-23] MEDS ORDERED: Succinylcholine 20mg/ml 10ml vial ONE (07:00)
[2020-05-23] MEDS ORDERED: Methohexital Sodium Syr 100mg/10ml IVP ONE (07:00)
[2020-05-23] MEDS ORDERED: Labetalol 5mg/ml 20ml vial IV ONE (07:00)
[2020-05-23] MEDS ORDERED: NS 500ML ONE (07:00)
[2020-05-23] MEDS ORDERED: Atropine Sulfate 0.4mg/ml inj IVP PRN (08:44)
[2020-05-23] MEDS ORDERED: Lidocaine 2% 100mg/5ml Carp IV PRN (08:44)
== END 2020-06-13 | disposition home or self-care (01) ==
LOC: ECT 06:33
DX: F25.9 Schizoaffective disorder, unspecified (principal)
CPT/HCPCS: 90870; J0330; J7040

== ENCOUNTER 2020-06-15 05:22 | Outpatient (RCR) | payer MEDICARE, MEDICAID ==
[~2020-06-15] VITALS: Ht 162.6 cm; Wt 70.3 kg
[2020-06-15] VITALS (7 sets, daily range): BP systolic 122–164; BP diastolic 42–75
[2020-06-15] MEDS ORDERED: NS 500ML ONE (05:23)
[2020-06-15] MEDS ORDERED: Succinylcholine 20mg/ml 10ml vial ONE (05:23)
[2020-06-15] MEDS ORDERED: Methohexita Syr 100mg/10ml IVP ONE (05:23)
[2020-07-08] VITALS (7 sets, daily range): BP systolic 141–179; BP diastolic 38–67
[2020-07-08] MEDS ORDERED: NS 500ML ONE ×2 (07:00→09:00)
[2020-07-08] MEDS ORDERED: Succinylcholine 20mg/ml 10ml vial ONE ×2 (07:00→09:00)
[2020-07-08] MEDS ORDERED: Methohexita Syr 100mg/10ml IVP ONE (07:00)
[2020-07-08] MEDS ORDERED: Labetalol 5mg/ml 20ml vial IV ONE ×2 (07:00→09:00)
[2020-07-08] MEDS ORDERED: Esmolol 100mg/10ml Inj ONE (09:00)
== END 2020-07-13 | disposition home or self-care (01) ==
LOC: ECT 05:22
DX: F25.9 Schizoaffective disorder, unspecified (principal)
CPT/HCPCS: 90870; J0330; J7040

== ENCOUNTER 2020-08-01 05:39 | Outpatient (RCR) | payer MEDICARE ==
[~2020-08-01] VITALS: Ht 162.6 cm; Wt 70.3 kg
[2020-08-01] VITALS (7 sets, daily range): BP systolic 142–190; BP diastolic 44–82
[2020-08-01] MEDS ORDERED: NS 500ML ONE (05:40)
[2020-08-01] MEDS ORDERED: Methohexital Sodium Syr 100mg/10ml IVP ONE (05:40)
[2020-08-01] MEDS ORDERED: Labetalol 5mg/ml 20ml vial IV ONE (05:40)
[2020-08-01] MEDS ORDERED: Succinylcholine 20mg/ml 10ml vial ONE (05:40)
== END 2020-08-13 | disposition home or self-care (01) ==
LOC: ECT 05:39
DX: F25.9 Schizoaffective disorder, unspecified (principal)
CPT/HCPCS: 90870; J0330; J7040

== ENCOUNTER 2020-08-26 04:39 | Outpatient (RCR) | payer MEDICARE, MEDICAID ==
[~2020-08-26] VITALS: Ht 30.5 cm; Wt 0.5 kg
[2020-08-26] VITALS (7 sets, daily range): BP systolic 114–187; BP diastolic 36–155
[2020-08-26] MEDS ORDERED: NS 500ML ONE (04:40)
[2020-08-26] MEDS ORDERED: Methohexita Syr 100mg/10ml IVP ONE (04:40)
[2020-08-26] MEDS ORDERED: Succinylcholine 20mg/ml 10ml vial ONE (04:40)
== END 2020-09-12 | disposition home or self-care (01) ==
LOC: ECT 04:39
DX: F25.9 Schizoaffective disorder, unspecified (principal)
CPT/HCPCS: 90870; J0330; J7040

== ENCOUNTER 2020-09-21 04:47 | Outpatient (RCR) | payer MEDICARE ==
[2020-09-21] VITALS (7 sets, daily range): BP systolic 124–162; BP diastolic 39–86
[~2020-09-21] VITALS: Ht 30.5 cm; Wt 0.5 kg
[2020-09-21] MEDS ORDERED: NS 500ML ONE (04:48)
[2020-09-21] MEDS ORDERED: Methohexita Syr 100mg/10ml IVP ONE (04:48)
[2020-09-21] MEDS ORDERED: Succinylcholine 20mg/ml 10ml vial ONE (04:48)
== END 2020-10-13 | disposition home or self-care (01) ==
LOC: ECT 04:47
DX: F25.9 Schizoaffective disorder, unspecified (principal)
CPT/HCPCS: 90870; J0330; J7040

== ENCOUNTER 2020-10-17 07:39 | Outpatient (RCR) | payer MEDICARE ==
[~2020-10-17] VITALS: Ht 162.6 cm; Wt 70.3 kg
[2020-10-24] VITALS (7 sets, daily range): BP systolic 126–151; BP diastolic 38–80
[2020-10-24] MEDS ORDERED: Methohexita Syr 100mg/10ml IVP ONE (06:00)
[2020-10-24] MEDS ORDERED: Succinylcholine 20mg/ml 10ml vial ONE (06:00)
[2020-10-24] MEDS ORDERED: NS 500ML ONE (06:00)
== END 2020-11-13 | disposition home or self-care (01) ==
LOC: ECT 07:39
DX: F25.9 Schizoaffective disorder, unspecified (principal)
CPT/HCPCS: 90870; J0330; J7040

== ENCOUNTER 2020-11-16 05:32 | Outpatient (RCR) | payer MEDICARE ==
[2020-11-16] VITALS (7 sets, daily range): BP systolic 140–159; BP diastolic 55–70
[~2020-11-16] VITALS: Ht 162.6 cm; Wt 70.3 kg
[2020-11-16] MEDS ORDERED: Methohexita Syr 100mg/10ml IVP ONE (05:33)
[2020-11-16] MEDS ORDERED: Succinylcholine 20mg/ml 10ml vial ONE (05:33)
[2020-11-16] MEDS ORDERED: NS 500ML ONE (05:33)
[2020-12-09] VITALS (7 sets, daily range): BP systolic 140–175; BP diastolic 53–63
[2020-12-09] MEDS ORDERED: Succinylcholine 20mg/ml 10ml vial ONE (06:00)
[2020-12-09] MEDS ORDERED: Methohexita Syr 100mg/10ml IVP ONE (06:00)
[2020-12-09] MEDS ORDERED: NS 500ML ONE (06:00)
== END 2020-12-11 | disposition home or self-care (01) ==
LOC: ECT 05:32
DX: F25.9 Schizoaffective disorder, unspecified (principal)
CPT/HCPCS: 90870; J0330; J7040